=== PATIENT | female | born 1970 | race Caucasian/White ===

== ENCOUNTER → 2023-12-19 07:44 | Outpatient (REF) | payer BC, SELFPAY | LOC: WDC 07:44 | PROVIDERS: ATTENDING PHYSICIAN Surgery; FAMILY PHYSICIAN Nurse Practitioner Adult Health | DX: E04.2 Nontoxic multinodular goiter (principal); N63.20 Unspecified lump in the left breast, unspecified quadrant; N64.59 Other signs and symptoms in breast; N63.42 Unspecified lump in left breast, subareolar; N63.41 Unspecified lump in right breast, subareolar | CPT/HCPCS: 76536; 76642; 77062; 77066 ==

== ENCOUNTER → 2024-05-22 13:14 | Outpatient (REF) | payer BC, SELFPAY | LOC: HWRAD 13:14 | PROVIDERS: ATTENDING PHYSICIAN Internal Medicine Rheumatology; FAMILY PHYSICIAN Nurse Practitioner Adult Health | DX: Z87.891 Personal history of nicotine dependence (principal); M25.50 Pain in unspecified joint; M79.641 Pain in right hand; M79.642 Pain in left hand; M79.671 Pain in right foot; M79.672 Pain in left foot | CPT/HCPCS: 71271; 72110; 72200; 73130; 73630 ==

== ENCOUNTER 2024-05-22 14:19 | Outpatient (RCR) | payer BC, SELFPAY | END 2024-05-22 23:59 | disposition home or self-care (01) | LOC: RPT 14:19 | PROVIDERS: ATTENDING PHYSICIAN Radiology Radiation Oncology; FAMILY PHYSICIAN Nurse Practitioner Adult Health | DX: C50.412 Malignant neoplasm of upper-outer quadrant of left female breast (principal); R53.0 Neoplastic (malignant) related fatigue; L90.5 Scar conditions and fibrosis of skin; Z79.811 Long term (current) use of aromatase inhibitors | CPT/HCPCS: 97162; 97530 ==

== ENCOUNTER 2024-07-06 14:11 | Outpatient (RCR) | payer BC, SELFPAY | END 2024-07-06 23:59 | disposition home or self-care (01) | LOC: RPT 14:11 | PROVIDERS: ATTENDING PHYSICIAN Radiology Radiation Oncology; FAMILY PHYSICIAN Nurse Practitioner Adult Health | DX: C50.412 Malignant neoplasm of upper-outer quadrant of left female breast (principal); R53.0 Neoplastic (malignant) related fatigue; L90.5 Scar conditions and fibrosis of skin; Z79.811 Long term (current) use of aromatase inhibitors; R53.1 Weakness | CPT/HCPCS: 97110; 97140; 97530 ==

== ENCOUNTER → 2024-08-02 08:03 | Outpatient (REF) | payer BC, SELFPAY | LOC: WDC 08:03 | PROVIDERS: ATTENDING PHYSICIAN Nurse Practitioner Primary Care; FAMILY PHYSICIAN Nurse Practitioner Adult Health | DX: R92.8 Other abnormal and inconclusive findings on diagnostic imaging of breast (principal) | CPT/HCPCS: 76642 ==

== ENCOUNTER → 2024-12-28 13:50 | Outpatient (REF) | payer BC, SELFPAY | LOC: WDC 13:50 | PROVIDERS: ATTENDING PHYSICIAN Internal Medicine Hematology & Oncology; FAMILY PHYSICIAN Nurse Practitioner Adult Health | DX: Z12.31 Encounter for screening mammogram for malignant neoplasm of breast (principal); C50.212 Malignant neoplasm of upper-inner quadrant of left female breast | CPT/HCPCS: 77063; 77067 ==

== ENCOUNTER → 2025-01-25 12:49 | Outpatient (REF) | payer BC, SELFPAY | LOC: WDC 12:49 | PROVIDERS: ATTENDING PHYSICIAN Nurse Practitioner Primary Care; FAMILY PHYSICIAN Nurse Practitioner Adult Health | DX: E04.2 Nontoxic multinodular goiter (principal); C50.212 Malignant neoplasm of upper-inner quadrant of left female breast; E04.1 Nontoxic single thyroid nodule; Z12.31 Encounter for screening mammogram for malignant neoplasm of breast; R53.83 Other fatigue; G62.0 Drug-induced polyneuropathy; Z79.811 Long term (current) use of aromatase inhibitors; K76.0 Fatty (change of) liver, not elsewhere classified; R92.8 Other abnormal and inconclusive findings on diagnostic imaging of breast | CPT/HCPCS: 76536; 76642; 77080 ==